=== PATIENT | male | born 1975 | race African-American/Black ===

== ENCOUNTER 2022-10-16 20:01 | Emergency (ER) | payer MEDICAID ==
[~2022-10-16] VITALS: Ht 180.3 cm; Wt 91.0 kg
[2022-10-16 20:03] VITALS: BP 129/86
== END 2022-10-17 03:09 | disposition left against medical advice (07) ==
LOC: ER 20:01
DX: M54.50 Low back pain, unspecified (principal); Z53.21 Procedure and treatment not carried out due to patient leaving prior to being seen by health care provider
CPT/HCPCS: 99281